=== PATIENT | female | born 1995 | race Hispanic/Latino ===

== ENCOUNTER 2019-03-11 14:05 | Inpatient (IN) | payer BC, OTHER ==
[~2019-03-11] VITALS: Ht 175.3 cm; Wt 100.8 kg
[2019-03-11] MEDS ORDERED: METHYLPREDNISOLONE SOD SUCC 1,000 MG/8 ML ML IV ONE (18:04)
[2019-03-11] MEDS ORDERED: ONDANSETRON HCL 4 MG/2 ML VIAL IV PRN (19:45)
[2019-03-11] MEDS ORDERED: ACETAMINOPHEN 325 MG TAB PO PRN ×2 (19:45)
[2019-03-11 20:01] LABS: ALBUMIN 3.6 g/dL (3.5-5.0); BILIRUBIN,TOTAL 0.5 mg/dL (0.2-1.0); CREATININE 0.6 mg/dL (0.5-1.5); POTASSIUM 3.7 mmol/L (3.5-5.1); TOTAL PROTEIN, SERUM 6.8 g/dL (6.0-8.3)
[2019-03-11 20:12] LABS: BASOPHILS % (AUTO) 0.3 % (0.0-5.0); EOSINOPHILS % (AUTO) 0.4 % (0.0-8.0); LYMPHOCYTES % (AUTO) 32.1 % (21.0-51.0); MEAN CORPUSCULAR HEMOGLOBIN 30.9 pg (27.0-33.0); MEAN CORPUSCULAR VOLUME 90.8 fL (79-99); MONOCYTES % (AUTO) 4.5 % (3.0-13.0); NEUTROPHILS % (AUTO) 62.7 % (40.0-77.0); NUCLEATED RED BLOOD CELLS 0.1 % (0.0-0.19); PLATELET COUNT (AUTO) 232 K/uL (130-400); RED BLOOD CELL COUNT(AUTO) 4.62 MIL/uL (4.00-5.50); RED CELL DISTRIBUTION WIDTH 13.3 % (11.0-15.5); WHITE BLOOD COUNT (AUTO) 6.4 K/uL (4.8-10.8)
[2019-03-11] MEDS ORDERED: FAMOTIDINE 20MG TAB 20 MG TAB ONE (20:31)
[2019-03-11] MEDS: FAMOTIDINE 20MG TAB 20 MG TAB PO SCH (21:00)
[2019-03-11] MEDS ORDERED: METHYLPREDNISOLONE SOD SUCC 125MG/2ML VIAL IV SCH (21:00)
[2019-03-11 21:14] LABS: THYROID STIMULATING HORMONE 0.74 uIU/mL (0.36-3.74)
[2019-03-11 21:18] LABS: CRP QUANTITATIVE < 2.00 mg/L (0.00-9.0)
[2019-03-11] MEDS ORDERED: FLU VACC QS2019-20 36MOS UP/PF 60 MCG/0.5 ML ML IM ONE (22:30)
[2019-03-12] VITALS (7 sets, daily range): BP systolic 113–136; BP diastolic 50–87
[2019-03-12] MEDS ORDERED: GLUCAGON 1MG KIT 1 MG ML IM PRN (00:30)
[2019-03-12] MEDS ORDERED: DEXTROSE 50%-WATER 50 ML DISP.SYRIN IV PRN (00:30)
[2019-03-12 05:03] LABS: BASOPHILS % (AUTO) 0.1 % (0.0-5.0); HEMATOCRIT 41.7 % (36-48); LYMPHOCYTES % (AUTO) 14.7 % (21.0-51.0); MEAN CORPUSCULAR HEMOGLOBIN 30.9 pg (27.0-33.0); MEAN CORPUSCULAR HGB CONC 34.7 g/dL (32.0-36.0); MEAN CORPUSCULAR VOLUME 89.1 fL (79-99); NEUTROPHILS % (AUTO) 84.2 % (40.0-77.0); PLATELET COUNT (AUTO) 256 K/uL (130-400); RED BLOOD CELL COUNT(AUTO) 4.68 MIL/uL (4.00-5.50); RED CELL DISTRIBUTION WIDTH 13.2 % (11.0-15.5); WHITE BLOOD COUNT (AUTO) 5.8 K/uL (4.8-10.8)
[2019-03-12 05:17] LABS: CREATININE 0.7 mg/dL (0.5-1.5); POTASSIUM 3.8 mmol/L (3.5-5.1)
[2019-03-12] MEDS ORDERED: FLU VACC QS2019-20 36MOS UP/PF 60 MCG/0.5 ML ML IM SCH (10:17)
[2019-03-12] MEDS: ENOXAPARIN SODIUM 40 MG/0.4 ML SYRINGE SQ SCH (10:38)
[2019-03-12] MEDS: FAMOTIDINE 20MG TAB 20 MG TAB PO SCH ×2 (10:38→19:31)
[2019-03-12] MEDS: METHYLPREDNISOLONE SOD SUCC 500 MG in SODIUM CHLORIDE 0.9% 50 ML IVP SCH ×2 (10:38→19:31)
[2019-03-12] MEDS ORDERED: COMPOUND IV MISC 1 EACH IVSOLN MISC PRN (12:00)
[2019-03-12] MEDS ORDERED: FLU VACC QS2019-20 36MOS UP/PF 60 MCG/0.5 ML ML IM ONE (14:32)
--- NOTE | 2019-03-12 16:46 | NUR ---
INITIAL: Met with pt this afternoon to discuss dcp. Pt mentions that she lives w her mother. Prior to admission she was independent w ambulation and ADLs, states that at times uses a walker. ADLs w assist at times. 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 Pt mentions that she feels safe and comfortable [place] to continue to follow. Pt listed as self pay, when asked states has insurance. Insurance card faxed to registration. Addendum: 03/12/19 at 1648 by TAWANA MAHMOOD Amended: Links added.
[2019-03-12] MEDS: INSULIN HUMULIN R 100 UNIT/ML 3ML SQ SCH (21:00)
[2019-03-13 03:00] VITALS: BP 120/51
[2019-03-13] MEDS: INSULIN HUMULIN R 100 UNIT/ML 3ML SQ SCH ×4 (05:29→21:00)
[2019-03-13 06:05] LABS: LYMPHOCYTES % (AUTO) 6.5 % (21.0-51.0); MEAN CORPUSCULAR HEMOGLOBIN 30.8 pg (27.0-33.0); MEAN CORPUSCULAR HGB CONC 34.1 g/dL (32.0-36.0); MEAN CORPUSCULAR VOLUME 90.2 fL (79-99); MONOCYTES % (AUTO) 2.9 % (3.0-13.0); NEUTROPHILS % (AUTO) 90.6 % (40.0-77.0); PLATELET COUNT (AUTO) 242 K/uL (130-400); RED BLOOD CELL COUNT(AUTO) 4.54 MIL/uL (4.00-5.50); RED CELL DISTRIBUTION WIDTH 13.4 % (11.0-15.5); WHITE BLOOD COUNT (AUTO) 16.7 K/uL (4.8-10.8)
[2019-03-13 08:00] VITALS: BP 126/55
[2019-03-13 08:36] LABS: CREATININE 0.8 mg/dL (0.5-1.5)
[2019-03-13 09:45] LABS: POTASSIUM 4.1 mmol/L (3.5-5.1)
[2019-03-13] MEDS: ENOXAPARIN SODIUM 40 MG/0.4 ML SYRINGE SQ SCH (09:58)
[2019-03-13] MEDS: FAMOTIDINE 20MG TAB 20 MG TAB PO SCH ×2 (09:58→19:52)
[2019-03-13] MEDS: METHYLPREDNISOLONE SOD SUCC 500 MG in SODIUM CHLORIDE 0.9% 50 ML IVP SCH ×2 (10:03→19:52)
[2019-03-13 11:37] VITALS: BP 113/63
--- NOTE | 2019-03-13 12:27 | NUR ---
RD Notification Pt admitted for MS exacerbation. Pt with 30lb wt loss within 3 mos. (12%wt loss). Pt BMI 32.8. Pt reports poor PO intake, however still attempts to eat foods. Pt tolerates cold foods better than hot foods. Recommend 4-6 small meals Diet order and snacks in between meals. Pt willing to try Ensure chilled/with ice with meals. Recommend 800 IU Vitamin D supplement daily secondary to autoimmune disease. Pt LBM 03/10/19. Pt monitored labs: Glu 198, Na 135, Alk 49. RD to continue to monitor. Please notify RD as nutritional concerns arise. Thank you. Addendum: 03/13/19 at [address] Amended: Links added.
[2019-03-13 16:00] VITALS: BP 132/89
--- NOTE | 2019-03-13 19:35 | NUR ---
PATIENT EDUCATION HANDOUT FROM [employer] PROVIDED ABOUT MULTIPLE SCLEROSIS. PT SIGNED FORM IN CHART. NO QUESTIONS FROM THE PATIENT AT THIS TIME.
[2019-03-13 20:00] VITALS: BP 133/72
[2019-03-14] VITALS: BP 130/62
[2019-03-14 04:00] VITALS: BP 137/62
[2019-03-14 05:11] LABS: BASOPHILS % (AUTO) 0.1 % (0.0-5.0); HEMATOCRIT 41.8 % (36-48); LYMPHOCYTES % (AUTO) 7.7 % (21.0-51.0); MEAN CORPUSCULAR HEMOGLOBIN 30.6 pg (27.0-33.0); MEAN CORPUSCULAR HGB CONC 34.1 g/dL (32.0-36.0); MEAN CORPUSCULAR VOLUME 89.9 fL (79-99); MONOCYTES % (AUTO) 1.9 % (3.0-13.0); NEUTROPHILS % (AUTO) 90.3 % (40.0-77.0); PLATELET COUNT (AUTO) 250 K/uL (130-400); RED BLOOD CELL COUNT(AUTO) 4.65 MIL/uL (4.00-5.50); RED CELL DISTRIBUTION WIDTH 13.7 % (11.0-15.5); WHITE BLOOD COUNT (AUTO) 12.9 K/uL (4.8-10.8)
[2019-03-14 05:56] LABS: CREATININE 0.7 mg/dL (0.5-1.5); POTASSIUM 4.4 mmol/L (3.5-5.1)
[2019-03-14] MEDS: INSULIN HUMULIN R 100 UNIT/ML 3ML SQ SCH ×4 (07:30→21:04)
[2019-03-14] MEDS: FAMOTIDINE 20MG TAB 20 MG TAB PO SCH ×2 (08:31→20:49)
[2019-03-14] MEDS: METHYLPREDNISOLONE SOD SUCC 500 MG in SODIUM CHLORIDE 0.9% 50 ML IVP SCH ×2 (08:32→20:49)
[2019-03-14] MEDS: ENOXAPARIN SODIUM 40 MG/0.4 ML SYRINGE SQ SCH (08:34)
[2019-03-14 11:38] VITALS: BP 131/76
[2019-03-14 16:11] VITALS: BP 123/70
--- NOTE | 2019-03-14 19:45 | NUR ---
LOGGING CREW FOREMAN PT REPORTS THAT HER LOGGING CREW FOREMAN IS MISSING FROM THE ROOM. PT CLAIMS THAT THERE WAS A MAINTENANCE GUYS WHO HAD BEEN BY TO CHECK THE OUTLETS EARLIER DURING THE DAY AND HER LOGGING CREW FOREMAN WAS PLUGGED IN. WHEN SHE NEEDED IT, SHE COULD NOT FIND IT ANYMORE. AM NURSE WAS MADE AWAR EAND CLAIMS HAS NOT SEEN THE SAID LOGGING CREW FOREMAN. WILL REPORT O SECURITY.
[2019-03-14 19:59] VITALS: BP 120/74
--- NOTE | 2019-03-14 20:49 | NUR ---
MEDS SHIFT ASSESSMENT DONE, PLEASE REFER TO CHART. DUE MEDS ADMINISTERED, TOLERATED WELL. KEPT RESTED AND COMFORTABLE. CALL LIGHT WITHIN REACH. WILL MONITOR PT. Addendum: 03/15/19 at 0132 by DEAN BYNUM RN RN Amended: Links added.
--- NOTE | 2019-03-14 22:00 | NUR ---
PIV SALINE LOCKED PIV AND PT REQUESTED TO SHOWER. PCP IN TO ASSIST PT.
[2019-03-14 23:28] VITALS: BP 133/72
--- NOTE | 2019-03-15 01:54 | NUR ---
ROUNDS PT RESTING WELL, FAIRLY ASLEEP WITH RESPIRATIONS EVEN AND UNLABORED. NO NOTED DISTRESS. KEPT UNDISTURBED FOR NOW. WILL MONITOR PT. CALL LIGHT WITHIN REACH.
[2019-03-15 04:00] VITALS: BP 136/77
--- NOTE | 2019-03-15 05:19 | NUR ---
ROUNDS PT RESTING IN BED. NO DISTRESS NOTED. NO CONCERNS VERBALIZED. KEPT RESTED AND COMFORTABLE. FOR MORE CARE.
[2019-03-15] MEDS: INSULIN HUMULIN R 100 UNIT/ML 3ML SQ SCH ×4 (05:49→21:00)
[2019-03-15 07:45] VITALS: BP 126/69
[2019-03-15] MEDS: FAMOTIDINE 20MG TAB 20 MG TAB PO SCH ×2 (08:56→21:11)
[2019-03-15] MEDS: ENOXAPARIN SODIUM 40 MG/0.4 ML SYRINGE SQ SCH (08:58)
[2019-03-15] MEDS: METHYLPREDNISOLONE SOD SUCC 500 MG in SODIUM CHLORIDE 0.9% 50 ML IVP SCH ×2 (08:58→21:10)
[2019-03-15 11:06] VITALS: BP 126/60
[2019-03-15 16:21] VITALS: BP 131/58
[2019-03-15 19:38] VITALS: BP 126/80
--- NOTE | 2019-03-15 21:10 | NUR ---
MEDS SHIFT ASSESSMENT DONE, PLEASE REFER TO CHART. DUE MEDS ADMINISTERED, TOLERATED WELL. KEPT RESTED AND COMFORTABLE. CALL LIGHT WITHIN REACH. WILL MONITOR PT. Addendum: 03/15/19 at 2249 by DEAN BYNUM RN RN Amended: Links added.
--- NOTE | 2019-03-15 22:50 | NUR ---
SHOWER SALINE LOCKED PT. PT REQUESTED TO SHOWER. PCP IN TO ASSIST PT.
[2019-03-15 23:50] VITALS: BP 127/76
--- NOTE | 2019-03-16 02:00 | NUR ---
ROUNDS PT STILL AWAKE BUT CLAIMS OF FEELING TIRED. ENCOURAGED TO REST AND SLEEP. DIMMED LIGHTS IN THE ROOM. MINIMIZED SOUNDS. WILL MONITOR PT. CALL LIGHT WITHIN REACH.
[2019-03-16 03:44] VITALS: BP 136/58
--- NOTE | 2019-03-16 05:37 | NUR ---
ROUNDS PT RESTING WELL, NO CONCERNS VERBALIZED. NO DISTRESS NOTED. FOR MORE CARE.
[2019-03-16] MEDS: INSULIN HUMULIN R 100 UNIT/ML 3ML SQ SCH ×2 (07:30→11:30)
[2019-03-16 08:00] VITALS: BP 124/61
[2019-03-16] MEDS: METHYLPREDNISOLONE SOD SUCC 500 MG in SODIUM CHLORIDE 0.9% 50 ML IVP SCH (08:48)
[2019-03-16] MEDS: FAMOTIDINE 20MG TAB 20 MG TAB PO SCH (08:48)
[2019-03-16] MEDS: ENOXAPARIN SODIUM 40 MG/0.4 ML SYRINGE SQ SCH (08:49)
[2019-03-16 11:40] VITALS: BP 136/59
--- NOTE | 2019-03-16 13:38 | NUR ---
DISCHARGE DISCHARGE INSTRUCTIONS GIVEN TO PATIENT, PRESCRIPTION GIVEN MEDROL DOSE [place]AS[place]. DR TREJO FOLLOW UP APPOINTMENT SET FOR PATIENT. PATIENT VERBALIZED ALL DISCHARGE INSTRUCTIONS. IV REMOVED HELD PRESSURE FOR 2 MINUTES COVERED WITH BANDAID.
== END 2019-03-16 13:42 | disposition home or self-care (01) | DRG 60 ==
LOC: EDH 14:05 → EDHIP 14:06 → 3CH 21:45 → 4CH 03-14 08:06
PROVIDERS: ADMIT Hospitalist; ATTEND Hospitalist
DX: G35 Multiple sclerosis (principal); R13.10 Dysphagia, unspecified; D72.829 Elevated white blood cell count, unspecified; T38.0X5A Adverse effect of glucocorticoids and synthetic analogues, initial encounter; Z23 Encounter for immunization; Y92.89 Other specified places as the place of occurrence of the external cause
CPT/HCPCS: 36415; 70553; 72156; 80048; 80053; 82948; 84443; 85025; 85651; 86140; G0008; G0378; J1650; J1815; J2930; Q2035

== ENCOUNTER 2019-04-24 14:40 | Emergency (ER) | payer BC ==
[2019-04-24] MEDS ORDERED: ACETAMINOPHEN 325 MG TAB ONE (15:51)
== END 2019-04-24 17:03 | disposition home or self-care (01) ==
LOC: EDH 14:40
DX: J01.90 Acute sinusitis, unspecified (principal); G35 Multiple sclerosis; Z98.890 Other specified postprocedural states
CPT/HCPCS: 87804

== ENCOUNTER 2019-11-30 18:13 | Inpatient (IN) | payer BC ==
[~2019-11-30] VITALS: Ht 175.3 cm; Wt 101.6 kg
[2019-11-30] MEDS ORDERED: ONDANSETRON HCL 4 MG/2 ML VIAL IV PRN (21:15)
[2019-12-01 00:45] VITALS: BP 133/56; PULSE 74; RESP 18; TEMP 98.2
--- NOTE | 2019-12-01 00:45 | NUR ---
ADMIT PATIENT ARRIVED VIA WHEELCHAIR TO ROOM 326 AAOX3. PATIENT ASSISTED TO BED WITH MINOR DIZZINESS BUT ABLE TO DO IT HER SELF. ALL QUESTIONS AND CONCERNS ADDRESSED. PATIENT ORIENTED TO ROOM AND HOSPITAL. NO OTHER QUESTIONS AT THIS TIME CALL ZAMORA WITH IN REACH.
[2019-12-01 04:00] VITALS: BP 126/59; PULSE 62; RESP 17; TEMP 97.8
[2019-12-01] MEDS ORDERED: MECLIZINE HCL 25 MG TABLET PO PRN (06:45)
[2019-12-01 07:20] VITALS: BP 128/60; PULSE 60; RESP 16; TEMP 97.8
[2019-12-01] MEDS ORDERED: GADODIAMIDE 10 MMOL/20 ML VIAL IV ONE (07:45)
[2019-12-01] MEDS: FAMOTIDINE 20MG TAB 20 MG TAB PO SCH ×2 (08:53→21:11)
[2019-12-01] MEDS ORDERED: ACETAMINOPHEN 325 MG TAB PO PRN ×2 (09:00)
[2019-12-01] MEDS ORDERED: LACTULOSE 20 GM/30 ML UDCUP PO PRN (09:00)
[2019-12-01] MEDS ORDERED: COMPOUND IV MISC 1 EACH IVSOLN MISC PRN (10:45)
[2019-12-01 11:28] VITALS: BP 109/59; PULSE 64; RESP 16; TEMP 98.1
[2019-12-01] MEDS: METHYLPREDNISOLONE SOD SUCC 500 MG in SODIUM CHLORIDE 0.9% 50 ML IVP SCH ×2 (12:00→21:12)
--- NOTE | 2019-12-01 12:57 | NUR ---
DCP CM spoke to pt discussed dc plans. Pt is independent prior to admission, lives at home w/family. Pt has a walker available at home. Denies any other equipments/services. Feels safe to go back home, still drives and works, mother able to assist with transportation and need as necessary. DC plan to home once stable. CM to cont to follow up. Addendum: 12/01/19 at 1258 by DESTINEY KWOK LVN CM Amended: Links added.
[2019-12-01 16:00] VITALS: BP 124/75; PULSE 81; RESP 16; TEMP 98.1
[2019-12-01 19:36] VITALS: BP 145/73; PULSE 101; RESP 17; TEMP 98.4
[2019-12-02] VITALS (7 sets, daily range): BP systolic 110–132; BP diastolic 43–73; PULSE 62–91; RESP 17–20; TEMP 98–98.4
[2019-12-02] MEDS: FAMOTIDINE 20MG TAB 20 MG TAB PO SCH ×2 (10:24→23:17)
[2019-12-02] MEDS: TRAMADOL HCL 50 MG TABLET PO PRN ×2 (10:28→23:20)
[2019-12-02] MEDS: METHYLPREDNISOLONE SOD SUCC 500 MG in SODIUM CHLORIDE 0.9% 50 ML IVP SCH ×2 (12:54→23:18)
[2019-12-03] MEDS: HYDROCODONE/ACETAMINOPHEN 5/325 MG TAB PO PRN ×3 (00:44→19:54)
[2019-12-03 04:23] VITALS: BP 123/51; PULSE 67; RESP 20; TEMP 98.3
[2019-12-03 09:04] VITALS: BP 115/50; PULSE 64; RESP 18; TEMP 98.1
[2019-12-03] MEDS: FAMOTIDINE 20MG TAB 20 MG TAB PO SCH ×2 (09:19→19:54)
[2019-12-03] MEDS: METHYLPREDNISOLONE SOD SUCC 500 MG in SODIUM CHLORIDE 0.9% 50 ML IVP SCH ×2 (11:00→23:00)
[2019-12-03 11:44] VITALS: BP 98/42; PULSE 70; RESP 20; TEMP 98.1
[2019-12-03 16:56] VITALS: BP 108/76; PULSE 64; RESP 20; TEMP 98.1
[2019-12-03 19:31] VITALS: BP 136/73; PULSE 67; RESP 20; TEMP 98.3
[2019-12-03] MEDS: TRAMADOL HCL 50 MG TABLET PO PRN (23:03)
[2019-12-04] VITALS (7 sets, daily range): BP systolic 98–128; BP diastolic 44–62; PULSE 48–75; RESP 16–20; TEMP 97.5–98.3
[2019-12-04] MEDS: METHYLPREDNISOLONE SOD SUCC 500 MG in SODIUM CHLORIDE 0.9% 50 ML IVP SCH ×2 (10:48→22:38)
[2019-12-04] MEDS: FAMOTIDINE 20MG TAB 20 MG TAB PO SCH ×2 (10:48→22:38)
[2019-12-04] MEDS: HYDROCODONE/ACETAMINOPHEN 5/325 MG TAB PO PRN ×2 (11:01→22:38)
[2019-12-05 04:00] VITALS: BP 129/56; PULSE 54; RESP 20; TEMP 97.7
[2019-12-05 08:14] VITALS: BP 149/71; PULSE 49; RESP 19; TEMP 97.6
[2019-12-05] MEDS: METHYLPREDNISOLONE SOD SUCC 500 MG in SODIUM CHLORIDE 0.9% 50 ML IVP SCH ×2 (09:14→20:04)
[2019-12-05] MEDS: FAMOTIDINE 20MG TAB 20 MG TAB PO SCH ×2 (09:14→20:04)
[2019-12-05] MEDS: HYDROCODONE/ACETAMINOPHEN 5/325 MG TAB PO PRN (09:41)
[2019-12-05 11:24] VITALS: BP 128/45; PULSE 71; RESP 19; TEMP 98.1
[2019-12-05 16:25] VITALS: BP 122/56; PULSE 70; RESP 18; TEMP 98.6
--- NOTE | 2019-12-05 18:45 | NUR ---
NOTE DISCHARGE INSTRUCTIONS GIVEN TO PATIENT AT THIS TIME. VERBALIZED UNDERSTANDING. SHE IS PENDING SOLUMEDROL INFUSION TONIGHT THEN SHE CAN PROCEED TO GO HOME.
--- NOTE | 2019-12-05 19:53 | NUR ---
RECEIVED PATIENT IN BED, AAOX3, NO ACUTE DISTRESS NOTED. PATIENT PENDING TO RECEIVE LAST DOSE OF IV SOLU-MEDROL AND THEN DISCHARGE HOME. DISCHARGE INSTRUCTIONS HAVE BEEN GIVEN BY PRESLEY FUENTES. Addendum: 12/05/19 at 1955 by ANA ROSA JOHNSON RN RN Amended: Links added.
--- NOTE | 2019-12-05 21:25 | NUR ---
PATIENT HAS RECEIVED LAST DOSE OF SOLU-MEDROL IV. TOLERATED WELL WITH NO ADVERSE REACTIONS. PIV TO LEFT WRIST REMOVED WITH CATHETER INTACT. PATIENT ESCORTED BY JUHI PCP TO ER FOR FAMILY PICKUP. ALL BELONGINGS TAKEN WITH PATIENT.
== END 2019-12-05 21:25 | disposition home or self-care (01) | DRG 60 ==
LOC: EDH 18:13 → EDHIP 21:13 → 3DH 22:08
PROVIDERS: ADMIT Internal Medicine; ATTEND Internal Medicine
DX: G35 Multiple sclerosis (principal); R42 Dizziness and giddiness; R51 Headache; R61 Generalized hyperhidrosis; H53.8 Other visual disturbances; Z82.5 Family history of asthma and other chronic lower respiratory diseases; Z83.3 Family history of diabetes mellitus; Z82.49 Family history of ischemic heart disease and other diseases of the circulatory system

== ENCOUNTER 2020-01-09 12:23 | Inpatient (IN) | payer BC ==
[~2020-01-09] VITALS: Ht 175.3 cm; Wt 103.3 kg
[~2020-01-09 12:23] MED LIST: METH4TAB3 PO
[2020-01-09 13:01] LABS: BASOPHILS % (AUTO) 0.1 % (0.0-5.0); EOSINOPHILS % (AUTO) 0.3 % (0.0-8.0); HEMATOCRIT 42.3 % (36-48); LYMPHOCYTES % (AUTO) 19.4 % (21.0-51.0); MEAN CORPUSCULAR HEMOGLOBIN 30.4 pg (27.0-33.0); MEAN CORPUSCULAR VOLUME 89.4 fL (79-99); MONOCYTES % (AUTO) 5.2 % (3.0-13.0); NEUTROPHILS % (AUTO) 74.6 % (40.0-77.0); PLATELET COUNT (AUTO) 229 K/uL (130-400); RED BLOOD CELL COUNT(AUTO) 4.73 MIL/uL (4.00-5.50); RED CELL DISTRIBUTION WIDTH 12.4 % (11.0-15.5); WHITE BLOOD COUNT (AUTO) 10.2 K/uL (4.8-10.8)
[2020-01-09] MEDS ORDERED: IOHEXOL-350 75 ML VIAL IV ONE (13:21)
[2020-01-09 13:27] LABS: INR 0.92 (0.85-1.15); PARTIAL THROMBOPLASTIN TIME 28.5 SEC (26.3-35.5)
[2020-01-09] MEDS ORDERED: METHYLPREDNISOLONE SOD SUCC 125MG/2ML VIAL ONE ×2 (14:13→19:49)
[2020-01-09 14:32] LABS: CREATININE 0.7 mg/dL (0.5-1.5); POTASSIUM 3.9 mmol/L (3.5-5.1)
[2020-01-09 14:36] LABS: ALBUMIN 3.6 g/dL (3.5-5.0); BILIRUBIN,TOTAL 0.4 mg/dL (0.2-1.0); TOTAL PROTEIN, SERUM 7.1 g/dL (6.0-8.3)
[2020-01-09 15:59] LABS: APPEARANCE,URINE Clear (CLEAR); BILIRUBIN,URINE Negative (NEGATIVE); COLOR,URINE Yellow (YELLOW); GLUCOSE, URINE (UA) Negative (NEGATIVE); KETONES,URINE Negative (NEGATIVE); LEUKOCYTE ESTERASE ,URINE Negative (NEGATIVE); NITRATE,URINE Negative (NEGATIVE); OCCULT BLOOD,URINE Negative (NEGATIVE); PH,URINE 5.5 (5.0-8.0); PROTEIN,URINE Negative (NEGATIVE); UROBILINOGEN,URINE 0.2 mg/dL (0.2-1.0)
[2020-01-09 16:05] LABS: AMPHET/METH SCREEN,URINE NEGATIVE (NEGATIVE); BARBITURATE SCREEN, URINE NEGATIVE (NEGATIVE); BENZODIAZEPINES SCREEN,URINE NEGATIVE (NEGATIVE); CANNABINOID SCREEN,URINE NEGATIVE (NEGATIVE); COCAINE SCREEN,URINE NEGATIVE (NEGATIVE); OPIATE SCREEN,URINE NEGATIVE (NEGATIVE); PHENCYCLIDINE SCREEN,URINE NEGATIVE (NEGATIVE)
[2020-01-09] MEDS ORDERED: ONDANSETRON HCL 4 MG/2 ML VIAL IVP PRN (16:30)
[2020-01-09] MEDS ORDERED: ACETAMINOPHEN 325 MG TAB PO PRN ×2 (16:30)
[2020-01-09] MEDS: METHYLPREDNISOLONE SOD SUCC 125MG/2ML VIAL IVP SCH ×2 (17:00→21:41)
[2020-01-09 20:45] VITALS: BP 132/68
[2020-01-09] MEDS: HYDROCODONE/ACETAMINOPHEN 5/325 MG TAB PO PRN (21:40)
[2020-01-10] VITALS (7 sets, daily range): BP systolic 113–131; BP diastolic 47–78
[2020-01-10] MEDS ORDERED: SODIUM CHLORIDE 0.9% 100 ML IV ONE (04:35)
[2020-01-10] MEDS: METHYLPREDNISOLONE SOD SUCC 125MG/2ML VIAL IVP SCH (04:46)
[2020-01-10] MEDS: HYDROCODONE/ACETAMINOPHEN 5/325 MG TAB PO PRN ×2 (04:57→21:52)
[2020-01-10 05:07] LABS: BASOPHILS % (AUTO) 0.1 % (0.0-5.0); HEMATOCRIT 39.6 % (36-48); LYMPHOCYTES % (AUTO) 11.6 % (21.0-51.0); MEAN CORPUSCULAR HEMOGLOBIN 30.3 pg (27.0-33.0); MEAN CORPUSCULAR HGB CONC 34.6 g/dL (32.0-36.0); MEAN CORPUSCULAR VOLUME 87.6 fL (79-99); MONOCYTES % (AUTO) 0.6 % (3.0-13.0); NEUTROPHILS % (AUTO) 87.2 % (40.0-77.0); PLATELET COUNT (AUTO) 240 K/uL (130-400); RED BLOOD CELL COUNT(AUTO) 4.52 MIL/uL (4.00-5.50); RED CELL DISTRIBUTION WIDTH 12.2 % (11.0-15.5); WHITE BLOOD COUNT (AUTO) 9.7 K/uL (4.8-10.8)
[2020-01-10 05:27] LABS: ALBUMIN 3.3 g/dL (3.5-5.0); BILIRUBIN,TOTAL 0.6 mg/dL (0.2-1.0); CREATININE 0.6 mg/dL (0.5-1.5); POTASSIUM 4.2 mmol/L (3.5-5.1); TOTAL PROTEIN, SERUM 6.7 g/dL (6.0-8.3)
[2020-01-10] MEDS ORDERED: GADODIAMIDE 10 MMOL/20 ML VIAL IV ONE (08:15)
[2020-01-10] MEDS: ENOXAPARIN SODIUM 30 MG/0.3 ML SQ SCH (10:00)
[2020-01-10 10:06] LABS: LACTATE DEHYDROGENASE 145 U/L (81-234)
[2020-01-10] MEDS ORDERED: PHARMACY COMMUNICATION MISC SCH (13:00)
[2020-01-10] MEDS ORDERED: COMPOUND IV REFRIGERATED 1 EACH IVSOLN MISC PRN (13:15)
[2020-01-10] MEDS: METHYLPREDNISOLONE SOD SUCC 500 MG in SODIUM CHLORIDE 0.9% 100 ML IVP SCH (21:00)
[2020-01-11] MEDS: HYDROCODONE/ACETAMINOPHEN 5/325 MG TAB PO PRN ×2 (03:10→09:49)
[2020-01-11 03:47] VITALS: BP 129/56
[2020-01-11] MEDS: TRAMADOL HCL 50 MG TABLET PO PRN (04:14)
[2020-01-11 05:39] LABS: BASOPHILS % (AUTO) 0.1 % (0.0-5.0); HEMATOCRIT 38.3 % (36-48); LYMPHOCYTES % (AUTO) 5.9 % (21.0-51.0); MEAN CORPUSCULAR HEMOGLOBIN 30.5 pg (27.0-33.0); MEAN CORPUSCULAR HGB CONC 34.2 g/dL (32.0-36.0); MEAN CORPUSCULAR VOLUME 89.1 fL (79-99); MONOCYTES % (AUTO) 0.7 % (3.0-13.0); NEUTROPHILS % (AUTO) 92.4 % (40.0-77.0); PLATELET COUNT (AUTO) 226 K/uL (130-400); RED CELL DISTRIBUTION WIDTH 12.5 % (11.0-15.5)
[2020-01-11 06:01] LABS: CREATININE 0.7 mg/dL (0.5-1.5); POTASSIUM 4.1 mmol/L (3.5-5.1)
[2020-01-11 08:00] VITALS: BP 127/63
[2020-01-11] MEDS: METHYLPREDNISOLONE SOD SUCC 500 MG in SODIUM CHLORIDE 0.9% 100 ML IVP SCH ×2 (09:49→21:20)
[2020-01-11] MEDS: ENOXAPARIN SODIUM 30 MG/0.3 ML SQ SCH (09:52)
--- NOTE | 2020-01-11 10:46 | NUR ---
CHART CHECK COMPLETED. Pt IS A 24 Y.O. FEMALE ADMITTED SECONDARY TO MULTIPLE SCLEROSIS EXACERBATION. Pt HAS A PAST MEDICAL HISTORY SIGNIFICANT FOR MULTIPLE SCLEROSIS DIAGNOSIS 2017. Pt CURRENTLY ON SOFT,THIN LIQUID DIET. PLEASE REQUEST FORMAL SKILLED SPEECH/SWALLOW EVALUATION IF Pt PRESENTS WITH +S/S OF ASPIRATION SUCH COUGH RESPONSE, THROAT CLEAR, OR WET VOCAL QUALITY DURING P.O. Addendum: 01/11/20 at 1049 by BYRON BAPTISTE, [facility] Amended: Links added.
[2020-01-11] MEDS ORDERED: GLUCAGON 1MG KIT 1 MG ML IM PRN (11:15)
[2020-01-11] MEDS ORDERED: DEXTROSE 50%-WATER 50 ML DISP.SYRIN IV PRN (11:15)
[2020-01-11] MEDS: INSULIN HUMULIN R 100 UNIT/ML 3ML SQ SCH ×3 (11:30→21:00)
[2020-01-11 11:54] VITALS: BP 108/56
--- NOTE | 2020-01-11 11:58 | NUR ---
RD NOTIFICATION Pt admitted with Multiple sclerosis. Pt with decreased appetite, refusal to eat except for nutritional supplement as per RN. Attempt to call Pt with no answer. RD to follow up. RN with concern for BG levels. Recommend diet modification to 75gm CCD Recommend Glucerna TID with meals RD to continue to monitor. Please notify as additional nutrition concerns arise. Thank you. Addendum: 01/11/20 at [address] Amended: Links added.
--- NOTE | 2020-01-11 14:26 | NUR ---
DYSPHAGIA EVAL COMPLETED. RECOMMEND FULL LIQUID DIET; PILLS WHOLE WITH LIQUIDS. RECOMMENDATIONS: SKILLED SPEECH THERAPY IS RECOMMENDED 1-3XWK LTG1: Pt WILL TOLERATE LEAST RESTRICTIVE DIET WITH NO OVERT S/S OF ASPIRATION. STG1: Pt WILL TOLERATE FULL LIQUID DIET WITH NO OVERT S/S OF ASPIRATION FOR ALL MEALS AND SNACKS. STG2: SKILLED EDUCATION Pt/FAMILY AND STAFF. Addendum: 01/11/20 at 1429 by BYRON BAPTISTE, [facility] Amended: Links added.
--- NOTE | 2020-01-11 15:57 | NUR ---
DCP CM spoke to pt discussed dc plans. Pt is independent prior to admission, lives at home w/mother. Denies any equipments/services. Feels safe to go back home, still drives and works, mother able to assist with transportation and needs as necessary. DC plan to home once stable. CM to cont to follow up. Addendum: 01/11/20 at 1600 by DESTINEY KWOK LVN CM Amended: Links added.
[2020-01-11 16:00] VITALS: BP 119/54
[2020-01-11 19:56] VITALS: BP 142/82
[2020-01-11 23:36] VITALS: BP 130/73
[2020-01-12] MEDS: HYDROCODONE/ACETAMINOPHEN 5/325 MG TAB PO PRN ×3 (02:20→20:27)
[2020-01-12 03:30] VITALS: BP 125/68
[2020-01-12 05:02] LABS: BASOPHILS % (AUTO) 0.1 % (0.0-5.0); HEMATOCRIT 39.1 % (36-48); LYMPHOCYTES % (AUTO) 6.9 % (21.0-51.0); MEAN CORPUSCULAR HEMOGLOBIN 30.7 pg (27.0-33.0); MEAN CORPUSCULAR HGB CONC 34.8 g/dL (32.0-36.0); MEAN CORPUSCULAR VOLUME 88.3 fL (79-99); MONOCYTES % (AUTO) 1.4 % (3.0-13.0); NEUTROPHILS % (AUTO) 90.8 % (40.0-77.0); PLATELET COUNT (AUTO) 229 K/uL (130-400); RED BLOOD CELL COUNT(AUTO) 4.43 MIL/uL (4.00-5.50); WHITE BLOOD COUNT (AUTO) 13.2 K/uL (4.8-10.8)
[2020-01-12] MEDS: TRAMADOL HCL 50 MG TABLET PO PRN (05:20)
[2020-01-12 05:34] LABS: CREATININE 0.7 mg/dL (0.5-1.5); POTASSIUM 4.4 mmol/L (3.5-5.1)
[2020-01-12] MEDS ORDERED: DIPHENHYDRAMINE HCL 25 MG CAPSULE PO PRN (05:45)
[2020-01-12] MEDS ORDERED: HYDROCORTISONE 0.5% 30 GM OINT TP PRN (05:45)
[2020-01-12] MEDS: INSULIN HUMULIN R 100 UNIT/ML 3ML SQ SCH ×4 (07:30→20:32)
[2020-01-12 08:00] VITALS: BP 118/62
[2020-01-12] MEDS: ENOXAPARIN SODIUM 30 MG/0.3 ML SQ SCH (08:38)
[2020-01-12] MEDS: METHYLPREDNISOLONE SOD SUCC 500 MG in SODIUM CHLORIDE 0.9% 100 ML IVP SCH ×2 (11:02→20:31)
[2020-01-12 12:00] VITALS: BP 114/59
--- NOTE | 2020-01-12 14:43 | NUR ---
DIET CHANGE HOSPITAL ADMINISTRATIVE ASSISTANT COORDINATED WITH NURSE PRESLEY MICHAELS TO flake miller helper RECOMMENDATIONS OF FULL LIQUID DIET PER EVALUATION COMPLETED 01/10. HE VERBALIZED UNDERSTANDING AND AGREEMENT WITH RECOMMENDATIONS. HOSPITAL ADMINISTRATIVE ASSISTANT TO CONTINUE TO FOLLOW Pt. Addendum: 01/12/20 at 1445 by BYRON BAPTISTE, SPT ST Amended: Links added.
[2020-01-12 16:00] VITALS: BP 111/53
[2020-01-12 20:00] VITALS: BP 115/64
[2020-01-13] VITALS: BP 119/51
[2020-01-13 03:46] VITALS: BP 119/62
[2020-01-13 05:37] LABS: HEMATOCRIT 40.8 % (36-48); LYMPHOCYTES % (AUTO) 7.2 % (21.0-51.0); MEAN CORPUSCULAR HEMOGLOBIN 29.8 pg (27.0-33.0); MEAN CORPUSCULAR HGB CONC 33.6 g/dL (32.0-36.0); MEAN CORPUSCULAR VOLUME 88.9 fL (79-99); MONOCYTES % (AUTO) 1.8 % (3.0-13.0); NEUTROPHILS % (AUTO) 89.8 % (40.0-77.0); PLATELET COUNT (AUTO) 230 K/uL (130-400); RED BLOOD CELL COUNT(AUTO) 4.59 MIL/uL (4.00-5.50); RED CELL DISTRIBUTION WIDTH 12.2 % (11.0-15.5); WHITE BLOOD COUNT (AUTO) 9.6 K/uL (4.8-10.8)
[2020-01-13 06:03] LABS: CREATININE 0.7 mg/dL (0.5-1.5); POTASSIUM 4.1 mmol/L (3.5-5.1)
[2020-01-13] MEDS: INSULIN HUMULIN R 100 UNIT/ML 3ML SQ SCH ×4 (06:09→21:00)
[2020-01-13 08:00] VITALS: BP 114/56
[2020-01-13] MEDS: METHYLPREDNISOLONE SOD SUCC 500 MG in SODIUM CHLORIDE 0.9% 100 ML IVP SCH ×2 (09:37→21:18)
[2020-01-13] MEDS: ENOXAPARIN SODIUM 30 MG/0.3 ML SQ SCH (09:37)
[2020-01-13] MEDS: HYDROCODONE/ACETAMINOPHEN 5/325 MG TAB PO PRN ×2 (09:42→21:34)
[2020-01-13 12:00] VITALS: BP 116/58
[2020-01-13] MEDS ORDERED: COMPOUND IV REFRIGERATED 1 EACH IVSOLN MISC PRN (12:30)
--- NOTE | 2020-01-13 13:04 | NUR ---
DYSPHAGIA RE-EVAL COMPLETED. -S/S OF ASPIRATION. RECOMMEND REGULAR TEXTURE, THIN LIQUIDS; PILLS WHOLE WITH LIQUIDS. Pt BACK TO BASELINE AT THIS TIME. Addendum: 01/13/20 at 1306 by BYRON BAPTISTE, [facility] Amended: Links added.
[2020-01-13 16:00] VITALS: BP 117/43
[2020-01-13] MEDS: TRAMADOL HCL 50 MG TABLET PO PRN (17:57)
--- NOTE | 2020-01-13 19:20 | NUR ---
ADDENDUM TO ASSESSMENT COMPLETED AT 1920, 01/13/2020. Addendum: 01/14/20 at 0105 by SYLVAIN ANAND RN RN Amended: Links added.
[2020-01-13 20:00] VITALS: BP 115/61
[2020-01-14] VITALS: BP 119/62
--- NOTE | 2020-01-14 03:52 | NUR ---
ITCHING PT REPORTS BILAT UE AND BILAT THIGH ITCHING. PT STATES THAT THIS OCCURED THE PREVIOUS NIGHT WELL. ADMIN BENADRYL PER JUL. WILL REASSESS FOR EFFECTIVENESS.
[2020-01-14 04:00] VITALS: BP 111/61
--- NOTE | 2020-01-14 04:00 | NUR ---
NOTE PT REPORTS ITCHING FROM BILAT UE AND THIGHS HAS SUBSIDED. ITCHING HAS BEGUN TO OCCUR IN BILAT HANDS, CHEST AND BACK AREAS. PROVIDED ICE PACKS. WILL CONTINUE TO MONITOR. Addendum: 01/14/20 at 0457 by SYLVAIN ANAND RN RN Amended: Links added.
[2020-01-14] MEDS: INSULIN HUMULIN R 100 UNIT/ML 3ML SQ SCH ×4 (06:30→21:00)
[2020-01-14 08:00] VITALS: BP 127/68
[2020-01-14] MEDS: TRAMADOL HCL 50 MG TABLET PO PRN ×2 (09:39→20:28)
[2020-01-14] MEDS: ENOXAPARIN SODIUM 30 MG/0.3 ML SQ SCH (09:40)
[2020-01-14] MEDS: METHYLPREDNISOLONE SOD SUCC 500 MG in SODIUM CHLORIDE 0.9% 100 ML IVP SCH ×2 (09:40→20:09)
[2020-01-14 12:00] VITALS: BP 118/53
[2020-01-14 16:00] VITALS: BP 124/55
[2020-01-14 20:00] VITALS: BP 105/60
[2020-01-15] VITALS: BP 126/86
[2020-01-15 04:00] VITALS: BP 129/53
[2020-01-15] MEDS: HYDROCODONE/ACETAMINOPHEN 5/325 MG TAB PO PRN ×2 (05:21→22:40)
[2020-01-15 06:06] LABS: BASOPHILS % (AUTO) 0.1 % (0.0-5.0); LYMPHOCYTES % (AUTO) 6.7 % (21.0-51.0); MEAN CORPUSCULAR HEMOGLOBIN 30.1 pg (27.0-33.0); MEAN CORPUSCULAR VOLUME 88.7 fL (79-99); MONOCYTES % (AUTO) 1.7 % (3.0-13.0); NEUTROPHILS % (AUTO) 90.1 % (40.0-77.0); PLATELET COUNT (AUTO) 252 K/uL (130-400); RED BLOOD CELL COUNT(AUTO) 4.85 MIL/uL (4.00-5.50); WHITE BLOOD COUNT (AUTO) 9.4 K/uL (4.8-10.8)
[2020-01-15 06:55] LABS: CREATININE 0.7 mg/dL (0.5-1.5); POTASSIUM 4.1 mmol/L (3.5-5.1)
[2020-01-15] MEDS: INSULIN HUMULIN R 100 UNIT/ML 3ML SQ SCH ×4 (07:30→21:00)
[2020-01-15 08:00] VITALS: BP 120/60
[2020-01-15] MEDS: METHYLPREDNISOLONE SOD SUCC 500 MG in SODIUM CHLORIDE 0.9% 100 ML IVP SCH ×2 (09:15→19:52)
[2020-01-15] MEDS: ENOXAPARIN SODIUM 30 MG/0.3 ML SQ SCH (09:16)
[2020-01-15 11:56] VITALS: BP 106/60
[2020-01-15 16:00] VITALS: BP 121/51
[2020-01-15 20:00] VITALS: BP 124/63
[2020-01-16] VITALS: BP 131/66
[2020-01-16 04:00] VITALS: BP 114/67
[2020-01-16] MEDS: HYDROCODONE/ACETAMINOPHEN 5/325 MG TAB PO PRN (06:30)
[2020-01-16] MEDS: INSULIN HUMULIN R 100 UNIT/ML 3ML SQ SCH ×2 (07:09→11:30)
[2020-01-16] MEDS ORDERED: MEDROL DAY 1 BREAKFAST PO NR (07:30)
[2020-01-16 08:11] VITALS: BP 115/70
[2020-01-16] MEDS: ENOXAPARIN SODIUM 30 MG/0.3 ML SQ SCH (11:00)
[2020-01-16 11:42] VITALS: BP 113/62
[2020-01-16] MEDS ORDERED: MEDROL DAY 1 LUNCH AND DINNER PO NR (12:00)
--- NOTE | 2020-01-16 14:20 | NUR ---
FOLLOW UP COMPLETED. Pt CURRENTLY TOLERATING REGULAR TEXTURE, THIN LIQUIDS; PILLS WHOLE WITH LIQUIDS. NO OVERT S/S OF ASPIRATION OR CHOCKING REPORTED AT THIS TIME. RECOMMEND CONTINUED DIET. Addendum: 01/16/20 at 1612 by BYRON BAPTISTE, [facility] ST Amended: Links added.
--- NOTE | 2020-01-16 15:30 | NUR ---
DISCHARGE INSTRUCTIONS discharge teaching completed with pt and mother on speaker phone ,aware of medrol dosing pack ,am and lunch dose given today IST AND 2nd dose given ,very important to continue all doses until pack is completed.Patient states she has taken this medication in the past.Voices understanding of follow up appointments
[2020-01-16] MEDS ORDERED: MEDROL DAY1 HS PO NR (21:00)
== END 2020-01-16 15:40 | disposition home or self-care (01) | DRG 60 ==
LOC: EDH 12:23 → EDHIP 16:29 → 3CH 20:51
PROVIDERS: ADMIT Hospitalist; ATTEND Hospitalist
DX: G35 Multiple sclerosis (principal); H54.62 Unqualified visual loss, left eye, normal vision right eye; E66.01 Morbid (severe) obesity due to excess calories; R13.10 Dysphagia, unspecified; Z20.828 Contact with and (suspected) exposure to other viral communicable diseases; Z68.33 Body mass index [BMI] 33.0-33.9, adult; Z83.3 Family history of diabetes mellitus; Z82.5 Family history of asthma and other chronic lower respiratory diseases; Z82.49 Family history of ischemic heart disease and other diseases of the circulatory system
CPT/HCPCS: 36415; 70450; 70496; 70498; 70553; 71045; 80048; 80053; 80305; 81003; 82550; 82728; 82948; 83615; 83721; 84145; 84443; 84484; 84702; 85025; 85378; 85610; 85730; 92610; 93005; A9579; G0378; J1650; J1815; J2930; J7509; Q0163; Q9967; U0003

== ENCOUNTER 2020-08-02 23:20 | Inpatient (IN) | payer BC ==
[~2020-08-02] VITALS: Ht 170.2 cm; Wt 105.8 kg
[2020-08-02 23:48] LABS: BASOPHILS % (AUTO) 0.3 % (0.0-5.0); EOSINOPHILS % (AUTO) 1.7 % (0.0-8.0); HEMATOCRIT 41.6 % (36-48); LYMPHOCYTES % (AUTO) 42.8 % (21.0-51.0); MEAN CORPUSCULAR HEMOGLOBIN 29.3 pg (27.0-33.0); MEAN CORPUSCULAR HGB CONC 33.7 g/dL (32.0-36.0); MONOCYTES % (AUTO) 5.6 % (3.0-13.0); NEUTROPHILS % (AUTO) 49.4 % (40.0-77.0); PLATELET COUNT (AUTO) 271 K/uL (130-400); RED BLOOD CELL COUNT(AUTO) 4.78 MIL/uL (4.00-5.50); RED CELL DISTRIBUTION WIDTH 12.5 % (11.0-15.5)
[2020-08-02 23:56] LABS: APPEARANCE,URINE Clear (CLEAR); BILIRUBIN,URINE Negative (NEGATIVE); COLOR,URINE Yellow (YELLOW); GLUCOSE, URINE (UA) Negative (NEGATIVE); KETONES,URINE Negative (NEGATIVE); LEUKOCYTE ESTERASE ,URINE Negative (NEGATIVE); NITRATE,URINE Negative (NEGATIVE); OCCULT BLOOD,URINE Negative (NEGATIVE); PROTEIN,URINE Negative (NEGATIVE)
[2020-08-02 23:58] LABS: CREATININE 0.7 mg/dL (0.5-1.5)
[2020-08-03 00:03] LABS: BILIRUBIN,TOTAL 0.3 mg/dL (0.2-1.0); TOTAL PROTEIN, SERUM 7.3 g/dL (6.0-8.3)
[2020-08-03] MEDS ORDERED: ACETAMINOPHEN 325 MG TAB ONE (00:13)
[2020-08-03] MEDS ORDERED: METHYLPREDNISOLONE IV ONE (00:42)
[2020-08-03 02:59] LABS: THYROID STIMULATING HORMONE 2.24 uIU/mL (0.36-3.74)
[2020-08-03] MEDS ORDERED: ACETAMINOPHEN 325 MG TAB PO PRN (04:30)
[2020-08-03] MEDS ORDERED: DiphenhydrAMINE HCL 50 MG/ML VIAL IV PRN (04:30)
[2020-08-03] MEDS ORDERED: ONDANSETRON 4MG INJ IV PRN (04:30)
[2020-08-03] MEDS ORDERED: MAG/ALUM/SIMETH 30 ML UDCUP PO PRN (04:30)
[2020-08-03] MEDS ORDERED: NITROGLYCERIN 0.4 MG SL TAB SL PRN (04:30)
[2020-08-03] MEDS ORDERED: GUAIFENESIN-DM 200/20 MG 10 ML PO PRN (04:30)
[2020-08-03] MEDS ORDERED: LACTULOSE 20 GM/30 ML UDCUP PO PRN (04:30)
[2020-08-03 05:00] VITALS: BP 145/80
[2020-08-03] MEDS ORDERED: MULT-1192 PO (05:38)
[2020-08-03] MEDS ORDERED: GLAT40SY SQ (05:38)
[2020-08-03] MEDS ORDERED: vitamin d PO (05:38)
[2020-08-03 06:50] LABS: BASOPHILS % (AUTO) 0.2 % (0.0-5.0); HEMATOCRIT 42.4 % (36-48); LYMPHOCYTES % (AUTO) 14.6 % (21.0-51.0); MEAN CORPUSCULAR HEMOGLOBIN 28.7 pg (27.0-33.0); MEAN CORPUSCULAR VOLUME 86.9 fL (79-99); NEUTROPHILS % (AUTO) 83.9 % (40.0-77.0); PLATELET COUNT (AUTO) 261 K/uL (130-400); RED BLOOD CELL COUNT(AUTO) 4.88 MIL/uL (4.00-5.50); RED CELL DISTRIBUTION WIDTH 12.5 % (11.0-15.5)
[2020-08-03 07:00] LABS: CREATININE 0.7 mg/dL (0.5-1.5); POTASSIUM 4.3 mmol/L (3.5-5.1)
[2020-08-03 08:23] VITALS: BP 145/86
[2020-08-03] MEDS: ACETAMINOPHEN 325 MG TAB PO PRN ×2 (08:32→16:10)
[2020-08-03] MEDS ORDERED: FAMOTIDINE 20MG VIAL IV SCH (09:00)
[2020-08-03 11:00] VITALS: BP 144/87
[2020-08-03] MEDS: SOLU MEDROL 500 MG IVP SCH (13:57)
[2020-08-03] MEDS: PANTOPRAZOLE 40 MG/VIAL IVP SCH (14:58)
[2020-08-03 16:00] VITALS: BP 115/59
[2020-08-03] MEDS ORDERED: IBUPROFEN 800 MG TAB PO SCH (19:45)
[2020-08-03 19:55] VITALS: BP 142/75
[2020-08-03 23:34] VITALS: BP 146/76
[2020-08-04] MEDS: SOLU MEDROL 500 MG IVP SCH ×2 (00:26→12:50)
[2020-08-04] MEDS: PANTOPRAZOLE 40 MG/VIAL IVP SCH ×2 (00:44→13:35)
[2020-08-04] MEDS: DIPHENHYDRAMINE HCL 25 MG CAPSULE PO PRN ×2 (01:22→13:52)
[2020-08-04 04:00] VITALS: BP 125/55
[2020-08-04 05:50] LABS: BASOPHILS % (AUTO) 0.1 % (0.0-5.0); HEMATOCRIT 39.3 % (36-48); LYMPHOCYTES % (AUTO) 6.9 % (21.0-51.0); MEAN CORPUSCULAR HEMOGLOBIN 29.5 pg (27.0-33.0); MEAN CORPUSCULAR HGB CONC 34.1 g/dL (32.0-36.0); MEAN CORPUSCULAR VOLUME 86.4 fL (79-99); MONOCYTES % (AUTO) 0.7 % (3.0-13.0); PLATELET COUNT (AUTO) 253 K/uL (130-400); RED BLOOD CELL COUNT(AUTO) 4.55 MIL/uL (4.00-5.50); RED CELL DISTRIBUTION WIDTH 12.5 % (11.0-15.5); WHITE BLOOD COUNT (AUTO) 14.5 K/uL (4.8-10.8)
[2020-08-04 06:11] LABS: CREATININE 0.7 mg/dL (0.5-1.5); POTASSIUM 4.1 mmol/L (3.5-5.1)
[2020-08-04] MEDS ORDERED: IBUPROFEN 600 MG TABLET ONE (07:34)
[2020-08-04 08:00] VITALS: BP 137/78
[2020-08-04] MEDS ORDERED: IBUPROFEN 600 MG TABLET PO PRN (09:15)
[2020-08-04 11:29] VITALS: BP 118/55
[2020-08-04 16:28] VITALS: BP 130/54
[2020-08-04 19:48] VITALS: BP 126/62
[2020-08-04 23:59] VITALS: BP 109/74
[2020-08-05] MEDS: SOLU MEDROL 500 MG IVP SCH ×2 (01:06→13:02)
[2020-08-05] MEDS: ZOLPIDEM TARTRATE 5 MG TAB PO PRN (01:11)
[2020-08-05] MEDS: PANTOPRAZOLE 40 MG TAB DR PO SCH ×2 (01:14→10:18)
[2020-08-05 04:17] VITALS: BP 127/59
[2020-08-05 05:16] LABS: BASOPHILS % (AUTO) 0.1 % (0.0-5.0); HEMATOCRIT 39.6 % (36-48); LYMPHOCYTES % (AUTO) 5.8 % (21.0-51.0); MEAN CORPUSCULAR HEMOGLOBIN 28.5 pg (27.0-33.0); MEAN CORPUSCULAR HGB CONC 32.8 g/dL (32.0-36.0); MEAN CORPUSCULAR VOLUME 86.8 fL (79-99); MONOCYTES % (AUTO) 1.2 % (3.0-13.0); NEUTROPHILS % (AUTO) 92.1 % (40.0-77.0); PLATELET COUNT (AUTO) 262 K/uL (130-400); RED BLOOD CELL COUNT(AUTO) 4.56 MIL/uL (4.00-5.50); RED CELL DISTRIBUTION WIDTH 12.8 % (11.0-15.5); WHITE BLOOD COUNT (AUTO) 14.5 K/uL (4.8-10.8)
[2020-08-05 05:28] LABS: CREATININE 0.6 mg/dL (0.5-1.5); POTASSIUM 3.9 mmol/L (3.5-5.1)
[2020-08-05 08:00] VITALS: BP 122/58
[2020-08-05] MEDS ORDERED: LIDOCAINE HCL-MPF 1% 2ML VIAL IV PRN (08:15)
[2020-08-05] MEDS ORDERED: POTASSIUM CHLORIDE 20MEQ/100ML 100 ML IV PRN (08:15)
[2020-08-05] MEDS: CITALOPRAM 20 MG TABLET PO SCH (10:18)
[2020-08-05 11:37] VITALS: BP 126/72
[2020-08-05 16:00] VITALS: BP 127/64
[2020-08-05 20:30] VITALS: BP 143/83
[2020-08-05 23:44] VITALS: BP 135/64
[2020-08-06] VITALS (7 sets, daily range): BP systolic 118–143; BP diastolic 52–78
[2020-08-06] MEDS: SOLU MEDROL 500 MG IVP SCH ×2 (01:34→13:35)
[2020-08-06] MEDS: ZOLPIDEM TARTRATE 5 MG TAB PO PRN (01:43)
[2020-08-06] MEDS: PANTOPRAZOLE 40 MG TAB DR PO SCH (08:33)
[2020-08-06] MEDS: CITALOPRAM 20 MG TABLET PO SCH (08:33)
[2020-08-07] MEDS: SOLU MEDROL 500 MG IVP SCH ×2 (00:58→13:42)
[2020-08-07] MEDS: ZOLPIDEM TARTRATE 5 MG TAB PO PRN (01:02)
[2020-08-07 03:41] VITALS: BP 129/77
[2020-08-07 05:24] LABS: BASOPHILS % (AUTO) 0.1 % (0.0-5.0); HEMATOCRIT 39.1 % (36-48); LYMPHOCYTES % (AUTO) 11.8 % (21.0-51.0); MEAN CORPUSCULAR HEMOGLOBIN 29.3 pg (27.0-33.0); MEAN CORPUSCULAR HGB CONC 33.8 g/dL (32.0-36.0); MEAN CORPUSCULAR VOLUME 86.9 fL (79-99); MONOCYTES % (AUTO) 1.4 % (3.0-13.0); NEUTROPHILS % (AUTO) 85.7 % (40.0-77.0); PLATELET COUNT (AUTO) 245 K/uL (130-400); RED CELL DISTRIBUTION WIDTH 12.5 % (11.0-15.5); WHITE BLOOD COUNT (AUTO) 7.2 K/uL (4.8-10.8)
[2020-08-07 05:34] LABS: CREATININE 0.7 mg/dL (0.5-1.5)
[2020-08-07] MEDS: CITALOPRAM 20 MG TABLET PO SCH (09:00)
[2020-08-07] MEDS: PANTOPRAZOLE 40 MG TAB DR PO SCH (09:00)
[2020-08-07 09:13] VITALS: BP 143/68
[2020-08-07 11:53] VITALS: BP 136/80
[2020-08-07 16:44] VITALS: BP 129/83
[2020-08-07 20:00] VITALS: BP 133/74
[2020-08-07 23:30] VITALS: BP 139/62
[2020-08-08] MEDS: SOLU MEDROL 500 MG IVP SCH (01:01)
[2020-08-08] MEDS: ZOLPIDEM TARTRATE 5 MG TAB PO PRN (01:01)
[2020-08-08 03:47] VITALS: BP 131/73
[2020-08-08] MEDS ORDERED: METH4TAB3 PO (06:21)
[2020-08-08] MEDS ORDERED: MEDROL DAY 1 BREAKFAST PO NR (07:30)
[2020-08-08] MEDS: PANTOPRAZOLE 40 MG TAB DR PO SCH (09:07)
[2020-08-08] MEDS: CITALOPRAM 20 MG TABLET PO SCH (09:08)
[2020-08-08 09:17] VITALS: BP 133/65
[2020-08-08] MEDS ORDERED: MEDROL DAY 1 LUNCH AND DINNER PO NR (12:00)
[2020-08-08] MEDS ORDERED: MEDROL DAY1 HS PO NR (21:00)
[2020-08-09] MEDS ORDERED: MEDROL DAY 2 BRK PO NR (07:30)
[2020-08-09] MEDS ORDERED: MEDROL DAY 2 LCH PO NR (11:30)
[2020-08-09] MEDS ORDERED: MEDROL DAY 2 DIN PO NR (16:30)
[2020-08-09] MEDS ORDERED: MEDROL DAY 2 HS PO NR (21:00)
[2020-08-10] MEDS ORDERED: MEDROL DAY 3 PO NR (07:30)
[2020-08-11] MEDS ORDERED: MEDROL DAY 4 BKF PO NR (07:30)
[2020-08-11] MEDS ORDERED: MEDROL DAY 4 LCH PO NR (11:30)
[2020-08-11] MEDS ORDERED: MEDROL DAY 4 DIN PO NR (16:30)
[2020-08-12] MEDS ORDERED: MEDROL DAY 5 BKF PO NR (07:30)
[2020-08-12] MEDS ORDERED: MEDROL DAY 5 HS PO NR (21:00)
[2020-08-13] MEDS ORDERED: MEDROL DAY 6 PO NR (07:30)
== END 2020-08-08 12:35 | disposition home or self-care (01) | DRG 60 ==
LOC: EDH 23:20 → EDHIP 08-03 04:19 → 3AH 08-03 04:45
PROVIDERS: ADMIT Family Medicine; ATTEND Family Medicine
DX: G35 Multiple sclerosis (principal); R42 Dizziness and giddiness; Z82.5 Family history of asthma and other chronic lower respiratory diseases; H54.7 Unspecified visual loss; Z83.3 Family history of diabetes mellitus; Z82.49 Family history of ischemic heart disease and other diseases of the circulatory system
CPT/HCPCS: 36415; 70450; 70551; 80048; 80053; 81003; 81025; 82550; 84443; 85025; 97039; C9113; G0378; J2930; J3490; J7509; Q0163